=== PATIENT | female | born 1940 | race Caucasian/White ===

== ENCOUNTER 2018-01-26 23:58 | Inpatient (IN) | payer OTHER ==
[~2018-01-26] VITALS: Ht 170.2 cm; Wt 63.5 kg
[2018-01-27] MEDS ORDERED: COZAAR25 MG (00:37)
== END 2018-01-30 13:05 | disposition home or self-care (01) | DRG 312 ==
LOC: ER 23:58 → SEC-K 01-27 10:33 → MEDI 01-27 11:16 → SURH 01-27 13:34
PROC: BW28ZZZ Computerized Tomography (CT Scan) of Head (ICD-10-PCS; principal; 2018-01-27)
PROC: B030ZZZ Magnetic Resonance Imaging (MRI) of Brain (ICD-10-PCS; 2018-01-27)
PROC: B345ZZZ Ultrasonography of Bilateral Common Carotid Arteries (ICD-10-PCS; 2018-01-27)
PROC: B348ZZZ Ultrasonography of Bilateral Internal Carotid Arteries (ICD-10-PCS; 2018-01-27)
PROC: B246ZZZ Ultrasonography of Right and Left Heart (ICD-10-PCS; 2018-01-27)
PROC: 4A12X4Z Monitoring of Cardiac Electrical Activity, External Approach (ICD-10-PCS; 2018-01-27)
DX: R55 Syncope and collapse (principal); S61.511A Laceration without foreign body of right wrist, initial encounter; W18.39XA Other fall on same level, initial encounter; Y93.89 Activity, other specified; Y92.091 Bathroom in other non-institutional residence as the place of occurrence of the external cause; Y99.8 Other external cause status; I10 Essential (primary) hypertension; I35.1 Nonrheumatic aortic (valve) insufficiency; R42 Dizziness and giddiness
CPT/HCPCS: 70544